=== PATIENT | male | born 1995 | race African-American/Black ===

== ENCOUNTER 2023-10-21 20:25 | Emergency (ER) | payer OTHER ==
[~2023-10-21] VITALS: Ht 185.4 cm; Wt 90.0 kg
[2023-10-21 20:27] VITALS: TEMP 98.2
[2023-10-21] MEDS ORDERED: METH-812 PO (22:29)
[2023-10-21] MEDS ORDERED: IBUP-1492 PO (22:29)
[2023-10-21] MEDS: KETOROLAC TROMETHAMINE 30 MG/ML VIAL IM ONE (22:41)
[2023-10-21 22:54] VITALS: BP 145/82; PULSE 67; RESP 18
== END 2023-10-21 22:56 | disposition home or self-care (01) ==
LOC: EDBD 20:30 → EMS 20:30
DX: S13.4XXA Sprain of ligaments of cervical spine, initial encounter (principal); V98.8XXA Other specified transport accidents, initial encounter; Y93.89 Activity, other specified; Y92.89 Other specified places as the place of occurrence of the external cause; Y99.8 Other external cause status
CPT/HCPCS: 99283; 96372; J1885